=== PATIENT | female | born 1950 | race Caucasian/White ===

== ENCOUNTER 2018-09-17 09:58 | Emergency (ER) | payer MEDICARE ==
[~2018-09-17] VITALS: Ht 160 cm; Wt 72.6 kg
[~2018-09-17 09:58] MED LIST: Colace100 MG PO; LAMOTRIGINE; LEVETIRACETA; LEVOTHYROXIN; Metoprolol Tar100 MG PO; Norco 5-325 Ta1 EACH PO; Paxil40 MG; Pravastatin Sod40 MG PO; Roxicodone5 MG PO
[2018-09-17] MEDS ORDERED: Norco 5-325 Ta1 EACH PO (11:17)
== END 2018-09-17 11:49 | disposition home or self-care (01) ==
LOC: ER 09:58
DX: S59.201A Unspecified physeal fracture of lower end of radius, right arm, initial encounter for closed fracture (principal); W05.0XXA Fall from non-moving wheelchair, initial encounter; Z79.899 Other long term (current) drug therapy; I10 Essential (primary) hypertension; E03.9 Hypothyroidism, unspecified; G40.909 Epilepsy, unspecified, not intractable, without status epilepticus; Z86.73 Personal history of transient ischemic attack (TIA), and cerebral infarction without residual deficits
CPT/HCPCS: 29105; 73110; 99283-25; A9270-GY